=== PATIENT | male | born 1965 | race Caucasian/White ===

== ENCOUNTER → 2021-10-29 | Outpatient (CLI) | payer SELFPAY ==
[~2021-10-29] MED LIST: ALBUTEROL0.09 MG/A2 IH; ZITHROMAX Z PA250 MG PO
== END | disposition home or self-care (01) ==
LOC: RAD 09:23
PROVIDERS: ATTEND Family Medicine
DX: U07.1 COVID-19 (principal); J12.82 Pneumonia due to coronavirus disease 2019

== ENCOUNTER 2023-05-26 09:46 | Inpatient (IN) | payer SELFPAY ==
[~2023-05-26] VITALS: Ht 165.1 cm; Wt 82.8 kg
[2023-05-26 09:59] VITALS: BP 164/130
[2023-05-26] MEDS ORDERED: ATORVASTATIN CA20 M1 PO (10:00)
[2023-05-26] MEDS ORDERED: LORAZEPAM1 MG PO (10:00)
[2023-05-26] MEDS ORDERED: TEMAZEPAM30 MG PO (10:01)
[2023-05-26] MEDS ORDERED: METFORMIN HYDR500 MG PO (10:01)
[2023-05-26] MEDS ORDERED: ANUSOL HC30 GM PO (10:02)
[2023-05-26] MEDS ORDERED: IBU800 M1 PO (10:02)
[2023-05-26] MEDS ORDERED: Atrovent 0.03%30 ML NAS (10:03)
[2023-05-26] MEDS ORDERED: ARNUITY ELLIPT50 MCG INH (10:04)
[2023-05-26 10:11] VITALS: BP 142/74
[2023-05-26 10:53] LABS: BASO % 0.4 % (0.0-1.0); EOS # 0.3 10*3/uL (0.0-0.4); EOS % 3.4 % (1.0-4.0); HEMATOCRIT 44.4 % (42.0-52.0); LYMPH # 0.6 10*3/uL (1.3-4.4); LYMPH % 6.9 % (27.0-41.0); MEAN CELL VOLUME 92.5 fl (80.0-94.0); MEAN CORPUSCULAR HGB 31.7 pg (27.0-31.0); MEAN CORPUSCULAR HGB CONC 34.2 g/dl (33.0-37.0); MEAN PLATELET VOLUME 10.3 fl (9.6-12.3); MONO # 0.7 10*3/uL (0.1-1.0); MONO % 7.8 % (3.0-9.0); NEUT # 7.3 10*3/uL (2.3-7.9); NEUT % 81.2 % (47.0-73.0); PLATELET COUNT AUTOMATED 144 10*3/uL (130-400); RED CELL DISTRI WIDTH 12.3 % (0-14.5); WHITE BLOOD COUNT 9.1 10*3/uL (4.8-10.8)
[2023-05-26 11:03] LABS: ACT PARTIAL THROMBO TIME 27.8 SECONDS (20.0-32.1)
[2023-05-26 11:15] LABS: ALKALINE PHOSPHATASE 69 U/L (46-116); BUN 12 mg/dl (9-23); CHLORIDE 109 mmol/L (98-107); LIPASE 37 U/L (12-53); POTASSIUM 4.2 mmol/L (3.4-5.1); SGPT/ALT 18 U/L (10-49); TOTAL PROTEIN 6.8 gm/dL (6.0-8.0)
[2023-05-26 20:46] VITALS: BP 146/81
[2023-05-27] VITALS: BP 140/75
[2023-05-27] MEDS ORDERED: CLARITIN LIQUI-10 MG PO (02:09)
[2023-05-27 04:38] LABS: HEMATOCRIT 44.9 % (42.0-52.0); MEAN CORPUSCULAR HGB CONC 34.7 g/dl (33.0-37.0); MEAN PLATELET VOLUME 10.5 fl (9.6-12.3); PLATELET COUNT AUTOMATED 159 10*3/uL (130-400); RED BLOOD COUNT 4.88 10*6/uL (4.50-5.90); RED CELL DISTRI WIDTH 12.1 % (0-14.5); WHITE BLOOD COUNT 11.6 10*3/uL (4.8-10.8)
[2023-05-27 05:07] LABS: MANUAL DIFF REFLEX YES
[2023-05-27 05:14] LABS: TOTAL CELLS COUNTED 100 #CELLS
[2023-05-27 05:15] LABS: PLATELET SUFFICIENCY NORMAL (NORMAL)
[2023-05-27 06:56] LABS: ALKALINE PHOSPHATASE 70 U/L (46-116); BUN 15 mg/dl (9-23); CHLORIDE 106 mmol/L (98-107); CHOLESTEROL 140 mg/dL (<200); LDL CHOLESTEROL 74 mg/dL (9-159); POTASSIUM 4.2 mmol/L (3.4-5.1); SGPT/ALT 19 U/L (10-49); TOTAL PROTEIN 7.1 gm/dL (6.0-8.0); TRIGLYCERIDES 58 mg/dl (<150)
[2023-05-27 08:00] VITALS: BP 117/68
[2023-05-27 11:38] VITALS: BP 122/72
[2023-05-27 15:30] VITALS: BP 129/77
[2023-05-27 20:00] VITALS: BP 125/77
[2023-05-28] VITALS: BP 128/84
[2023-05-28 08:39] LABS: BUN 19 mg/dl (9-23); CHLORIDE 108 mmol/L (98-107); POTASSIUM 4.2 mmol/L (3.4-5.1)
[2023-05-28 12:00] VITALS: BP 115/90
[2023-05-28 16:00] VITALS: BP 123/73
[2023-05-28 20:00] VITALS: BP 116/69
[2023-05-29] VITALS: BP 127/80
[2023-05-29 05:27] LABS: BUN 17 mg/dl (9-23); CHLORIDE 108 mmol/L (98-107); POTASSIUM 4.5 mmol/L (3.4-5.1)
[2023-05-29 06:12] LABS: HEMATOCRIT 45.7 % (42.0-52.0); MEAN CORPUSCULAR HGB 31.8 pg (27.0-31.0); MEAN CORPUSCULAR HGB CONC 33.5 g/dl (33.0-37.0); MEAN PLATELET VOLUME 11.2 fl (9.6-12.3); PLATELET COUNT AUTOMATED 169 10*3/uL (130-400); RED BLOOD COUNT 4.81 10*6/uL (4.50-5.90); RED CELL DISTRI WIDTH 12.5 % (0-14.5); WHITE BLOOD COUNT 14.2 10*3/uL (4.8-10.8)
[2023-05-29 06:17] LABS: MANUAL DIFF REFLEX YES
[2023-05-29 07:32] LABS: PLATELET SUFFICIENCY NORMAL (NORMAL); TOTAL CELLS COUNTED 100 #CELLS
[2023-05-29 08:00] VITALS: BP 151/97
[2023-05-29] MEDS ORDERED: ASPIRIN CHILDRE81 MG PO (11:59)
[2023-05-29] MEDS ORDERED: PREDNISONE10 MG PO (11:59)
[2023-05-29] MEDS ORDERED: ZITHROMAX TRI-500 M1 PO (11:59)
[2023-05-29] MEDS ORDERED: LOPRESSOR25 MG PO (11:59)
[2023-05-29] MEDS ORDERED: ATORVASTATIN CA40 M1 PO (11:59)
[2023-05-29 12:00] VITALS: BP 136/86
== END 2023-05-29 14:35 | disposition home or self-care (01) | DRG 281 ==
LOC: ED 09:46 → EDHOLD 12:31 → 5E 05-27 14:52
PROVIDERS: Emergency Medicine; Family Medicine; Internal Medicine; Student in an Organized Health Care Education/Training Program; ADMIT Internal Medicine; ATTEND Internal Medicine
DX: I21.4 Non-ST elevation (NSTEMI) myocardial infarction (principal); J44.0 Chronic obstructive pulmonary disease with (acute) lower respiratory infection; J44.1 Chronic obstructive pulmonary disease with (acute) exacerbation; F17.210 Nicotine dependence, cigarettes, uncomplicated; J20.9 Acute bronchitis, unspecified; E78.5 Hyperlipidemia, unspecified; I11.9 Hypertensive heart disease without heart failure; J44.9 Chronic obstructive pulmonary disease, unspecified; E11.65 Type 2 diabetes mellitus with hyperglycemia; R79.82 Elevated C-reactive protein (CRP); I34.0 Nonrheumatic mitral (valve) insufficiency; F41.9 Anxiety disorder, unspecified; J30.2 Other seasonal allergic rhinitis; Z87.19 Personal history of other diseases of the digestive system; Z82.49 Family history of ischemic heart disease and other diseases of the circulatory system; Z71.6 Tobacco abuse counseling; Z79.899 Other long term (current) drug therapy